=== PATIENT | female | born 1975 | race Two or more races ===

== ENCOUNTER 2025-08-02 18:09 | Emergency (ER) | payer BC, OTHER ==
[~2025-08-02] VITALS: Ht 175.3 cm; Wt 155.0 kg
[2025-08-02 18:59] LABS: Hematocrit 43.1 % (36.0-46.0); Hemoglobin 14.0 g/dL (12.2-16.2); Mean Corpuscular Hemoglobin 28.5 pg (28.0-32.0); Mean Corpuscular Volume 87.9 fL (80.0-100.0); Nucleated Red Blood Cells % 0.1 %
--- NOTE | 2025-08-02 19:00 | DVH ---
CLINICAL INDICATION: left foot pain TECHNIQUE: 3 radiographic views of the left foot were obtained. Comparison: None FINDINGS/IMPRESSION: There is no evidence of acute fracture or dislocation. The visualized joint space is well maintained. The alignment is anatomical. There is no radiopaque foreign body. Moderate dorsal foot soft tissue edema most prominent over the forefoot.
[2025-08-02] MEDS ORDERED: METH4PAK PO (19:40)
[2025-08-02] MEDS ORDERED: IBUP-1456 PO (19:40)
[2025-08-02] MEDS ORDERED: CEPH500C PO (19:40)
--- NOTE | 2025-08-02 19:40 | ED.PDOC ---
Musculoskeletal HPI Comments 50 YEAR OLD FEMALE PRESENTS TO ER WITH COMPLAINTS OF LEFT FOOT PAIN X1 WEEK. PATIENT REPORTS SHE STARTED EXPERIENCING UNPROVOKED PAIN/SWELLING/REDNESS TO LATERAL ASPECT OF LEFT FOOT X1 WEEK. SHE RATES HER CURRENT PAIN A 7/10 TO LEFT FOOT WITHOUT RADIATION AND NOTES SHE'S BEEN ELEVATING AND TAKING IBUPROFEN FOR HER PAIN WITH SLIGHT RELIEF. DENIES NUMBNESS/TINGLING, FEVER, BODY ACHES, CHILLS AND ENDORSES NO FURTHER SYMPTOMS/COMPLAINTS Chief Complaint: Lower Extremity Time Seen by MD: 18:15 Primary Care Provider: [place] Reviewed Notes: Nurses Notes, Medications, Allergies Allergies: Coded Allergies: NO KNOWN ALLERGIES (Unverified , 04/25/12) Home Meds Active Scripts Ibuprofen (Ibuprofen) 800 Mg Tab, 1 TAB PO TID PRN, #30 TAB 0 Refills Prov:CT LOZANO 08/02/25 Methylprednisolone (Medrol Dosepak) 4 Mg Isidro, 4 MG PO UD, #21 TAB 0 Refills UAD Prov:CT LOZANO 08/02/25 Cephalexin Monohydrate (Cephalexin) 500 Mg Cap, 500 MG PO QID for 7 Days, #28 CAP 0 Refills Prov:CT LOZANO 08/02/25 Information Source: Patient Mode of Arrival: Wheelchair Last Tetanus: Unknown Past Medical History PAST MEDICAL HISTORY: DM Surgical History: Denies all surgeries Family History Family History: Unknown Social History Smoker: Non-Smoker Alcohol: Denies ETOH Use Drugs: Denies Drug Use Lives In: Home Constitutional: denies: chills, diaphoresis, fatigue, fever, malaise, sweats, weakness, others EENTM: denies: blurred vision, double vision, ear bleeding, ear discharge, ear drainage, ear pain, ear ringing, eye pain, eye redness, hearing loss, mouth pain, mouth swelling, nasal discharge, nose bleeding, nose congestion, nose pain, photophobia, tearing, throat pain, throat swelling, voice changes, others Respiratory: denies: cough, hemoptysis, orthopnea, SOB at rest, shortness of breath, SOB with excertion, stridor, wheezing, others Cardiovascular: denies: chest pain, dizzy spells, diaphoresis, Dyspnea on exertion, edema, irregular heart beat, left arm pain, lightheadedness, palpitations, PND, syncope, others Gastrointestinal: denies: abdomen distended, abdominal pain, blood streaked bowels, constipated, diarrhea, dysphagia, difficulty swallowing, hematemesis, melena, nausea, poor appetite, poor fluid intake, rectal bleeding, rectal pain, vomiting, others Genitourinary: denies: abnormal vagina bleeding, burning, dyspareunia, dysuria, flank pain, frequency, hematuria, incontinence, pain, , vagina dis charge, urgency, others Neurological: denies: dizziness, fainting, headache, left sided numbness, left sided weakness, numbness, paresthesia, pre-existing deficit, right sided numbness, right sided weakness, seizure, speech problems, tingling, tremors, weakness, others Musculoskeletal: reports: others ( STATED IN HPI) Integumetry: reports: others ( STATED IN HPI) Allergic/Immunocompromised: denies: Difficulty Healing, Frequent Infections, Hives, Itching, others Hematologic/Lymphatic: denies: anemia, blood clots, easy bleeding, easy bruising, swollen glands, others Endocrine: denies: excessive hunger, excessive sweating, excessive thirst, excessive urination, flushing, intolerance to cold, intolerance to heat, unexplained weight gain, unexplained weight loss, others Psychiatric: denies: anxiety, bipolar disorder, depression, hopeless, panic disorder, schizophrenia, sleepless, suicidal, others Physical Exam General Appearance: No Apparent Distress, Obese HEENT: PERRL/EOMI Neck: Full Range of Motion, Non-Tender, Normal Respiratory: Chest Non-Tender, Lungs Clear, No Accessory Muscle Use, No Resp iratory Distress, Normal Breath Sounds Cardiovascular: No Murmur, No Gallop, Regular Rate/Rhythm Breast Exam: Deferred Gastrointestinal: NOT DONE Genitalia: Deferred Pelvic: Deferred Rectal: Deferred Extremities: Normal capillary refill, Normal range of motion Musculoskeletal : Extremity Location: Foot (TTP/MODERATE SWELLING/MILD ERYTHEMA NOTED TO LATERAL ASPECT OF LEFT FOOT. NO FLUCTUANCE/RED STREAKING NOTED. NO OTHER TTP TO LEFT LOWER EXTREMITY NOTED. GAIT SLOWED DUE TO PAIN LOCALIZED TO LATERAL ASPECT OF LEFT FOOT) Neurologic: Alert, No Motor Deficits, Normal Affect, Normal Mood, No Sensory Deficits Cerebellar Function: Normal Reflexes: Normal Skin: Dry, Warm Peripheral Pulses: 2+ dorsalis pedis (R), 2+ dorsalis pedis (L), 2+ Radial (R), 2+ Radial (L), 2+ Brachial (R), 2+ Brachial (L) Lymphatic: No Adenopathy Was a procedure done? Was a procedure done?: No Sedation Sedation?: No Differential Diagnosis EXT Differential Diagnosis: Fracture, Septic, Neurovascular injury, Other (Abscess) X-Ray, Labs, Meds, VS Vital Signs Date Time Temp Pulse Resp B/P (MAP) Pulse Ox O2 Delivery O2 Flow Rate FiO2 08/02/25 18:11 98.2 118 18 153/79 97 98.2 Lab Test 08/02/25 18:35 Range/Units White Blood Count 11.6 H 4.4-10.8 10^3/uL Red Blood Count 4.90 4.0-5.20 10^6/uL Hemoglobin 14.0 12.2-16.2 g/dL Hematocrit 43.1 36.0-46.0 % Mean Corpuscular Volume 87.9 80.0-100.0 fL Mean Corpuscular Hemoglobin 28.5 28.0-32.0 pg Mean Corpuscular Hemoglobin Concent 32.5 32.0-36.0 g/dL Red Cell Distribution Width 13.7 11.8-14.3 % Platelet Count 286 140-450 10^3/uL Mean Platelet Volume 9.5 6.9-10.8 fL Neutrophils (%) (Auto) 62.9 37.0-80.0 % Lymphocytes (%) (Auto) 28.9 10.0-50.0 % Monocytes (%) (Auto) 6.1 0.0-12.0 % Eosinophils (%) (Auto) 1.8 0.0-7.0 % Basophils (%) (Auto) 0.3 0.0-2.0 % Neutrophils # (Auto) 7.3 1.6-8.6 10 ^3/uL Lymphocytes # (Auto) 3.3 0.4-5.4 10 ^3/uL Monocytes # (Auto) 0.7 0-1.3 10 ^3/uL Eosinophils # (Auto) 0.2 0-0.8 10 ^3/uL Basophils # (Auto) 0 0-0.2 10 ^3/uL Nucleated Red Blood Cells 0.1 % PATIENT: MATTHEW NATIONJORGET: [id number]: [id number] : 1975 LOC: ER ROOM / BED: / AGE / SEX: 50 / F ADM STATUS: REG ER SERVICE 14 ORDERING PHYSICIAN: CT LOZANO PROCEDURE(s): LFOOT - L FOOT 3 VIEW XRAY REASON: left foot pain ORDER NUMBER(s): [id number], ACCESSION NUMBER(s): [id number] CLINICAL INDICATION: left foot pain TECHNIQUE: 3 radiographic views of the left foot were obtained. Comparison: None FINDINGS/IMPRESSION: There is no evidence of acute fracture or dislocation. The visualized joint space is well maintained. The alignment is anatomical. There is no radiopaque foreign body. Moderate dorsal foot soft tissue edema most prominent over the forefoot. ATED BY: HALEY KHOURY DO DICTATED DATE/TIME: 08/02/251857 SIGNED BY: HALEY KHOURY DO SIGNED DATE/TIME: 08/02/251857 CC: Left foot x-ray reviewed CBC reviewed-WBC 11.6 Tdap IM ordered Advised on elevation, rest and alternate ice on/off as needed for pain/swelling Advised to follow up with PCP in 1-2 days Patient verbalized understanding and agreeable with current plan of care Advised to return to ER immediately if symptoms worsen Images Reviewed?: Images reviewed and evaluated by me Time of 1ST Reevaluation: 19:12 Reevaluation 1ST: N/A Patient Education/Counseling: Diagnosis, Treatment, Prognosis, Need For Follow Up Family Education/Counseling: No Family Present Departure 1 Departure Time of Disposition: 19:38 Impression: Primary Impression: Cellulitis of left foot Disposition: 01 HOME / SELF CARE / HOMELESS Condition: Stable e-Prescriptions Ibuprofen (Ibuprofen) 800 Mg Tab 1 TAB PO TID PRN, #30 TAB 0 Refills Prov: CT LZOANO 08/02/25 Methylprednisolone (Medrol Dosepak) 4 Mg Isidro 4 MG PO UD, #21 TAB 0 Refills UAD Prov: CT LOZANO 08/02/25 Cephalexin Monohydrate (Cephalexin) 500 Mg Cap 500 MG PO QID for 7 Days, #28 CAP 0 Refills Prov: CT LOZANO 08/02/25 Discharged With: Friend Critical Care Note Critical Care Time?: No Stability Stability form required: No Heart Score Heart Score: Heart Score Response (Comments) Value History N/A 0 EKG N/A 0 Age N/A 0 Risk Factors N/A 0 Troponin N/A [address] LOZANO Aug 02, 2025 19:40
[2025-08-02] MEDS: TETANUS-DIPTH-ACEL PERTUSSIS 0.5ML SYR Tdap IM ONE (19:54)
[2025-08-02 19:56] VITALS: BP 153/79; PULSE 106; RESP 18; TEMP 98.2; O2SAT 97
== END 2025-08-02 19:58 | disposition home or self-care (01) ==
LOC: ER 18:09
DX: L03.116 Cellulitis of left lower limb (principal); E11.9 Type 2 diabetes mellitus without complications; Z79.899 Other long term (current) drug therapy
CPT/HCPCS: 36415; 73630; 85025; 90471; 90715